=== PATIENT | female | born 1990 | race American Indian/Alaskan Native ===

== ENCOUNTER 2023-06-20 20:20 | Emergency (ER) | payer OTHER ==
[~2023-06-20] VITALS: Ht 157.5 cm; Wt 103.0 kg
[2023-06-20] MEDS ORDERED: ZYRTEC10 M3 PO (21:57)
[2023-06-20 22:15] VITALS: BP 107/72
== END 2023-06-20 22:15 | disposition home or self-care (01) ==
LOC: ED 20:20
DX: L50.9 Urticaria, unspecified (principal); Z88.0 Allergy status to penicillin; Z88.5 Allergy status to narcotic agent
CPT/HCPCS: 96374; 96375; 99283-25; J1100; J1200